=== PATIENT | female | born 1970 ===

== ENCOUNTER 2016-03-31 14:14 | Outpatient (CLI) | payer OTHER ==
[2016-03-31 14:32] LABS: Basophils % (Auto) 0.6 % (0.0-1.8); Eosinophils % (Auto) 1.7 % (0.0-4.3); Hematocrit 36.8 % (30.3-42.9); Hemoglobin 12.2 gm/dl (10.1-14.3); Mean Corpuscular HGB Conc 33 % (30-34); Mean Corpuscular Hemoglobin 28 pg (28-32); Mean Corpuscular Volume 84 fl (79-97); Platelet Count 286 K/mm3 (140-440); Red Blood Count 4.41 M/mm3 (3.65-5.03); Red Cell Distribution Width 14.7 % (13.2-15.2); White Blood Count 8.7 K/mm3 (4.5-11.0)
[2016-03-31 14:55] LABS: Alanine Aminotransferase 8 units/L (7-56); Albumin 3.9 g/dL (3.9-5); Albumin/Globulin Ratio 1.1 %; Alkaline Phosphatase 47 units/L (35-129); Anion Gap 17 mmol/L; BUN/Creatinine Ratio 13.33; Bilirubin,Total 0.3 mg/dL (0.1-1.2); Blood Urea Nitrogen 12 mg/dL (7-17); Calcium 9.1 mg/dL (8.4-10.2); Carbon Dioxide 23 mmol/L (22-30); Chloride 100.5 mmol/L (98-107); Cholesterol 197 mg/dL (50-199); Glucose 72 mg/dL (65-100); HDL Cholesterol 71 mg/dL (40-59); LDL Cholesterol,Direct 111 mg/dL (50-130); Potassium 3.8 mmol/L (3.6-5.0); Sodium 137 mmol/L (137-145); Total Protein 7.5 g/dL (6.3-8.2); Triglycerides 77 mg/dL (2-149)
== END 2016-03-31 14:15 | disposition home or self-care (01) ==
LOC: LABHHL 14:14
PROVIDERS: ATTEND Specialist
DX: Z00.00 Encounter for general adult medical examination without abnormal findings (principal); D50.9 Iron deficiency anemia, unspecified; E61.8 Deficiency of other specified nutrient elements; K30 Functional dyspepsia
CPT/HCPCS: 36415; 80053; 80061; 84443; 85025